=== PATIENT | male | born 1985 | race African-American/Black ===

== ENCOUNTER 2020-10-19 11:02 | Inpatient (IN) ==
[2020-10-19 11:56] LABS: Basophils # 0.1 K/mcL (0.0-0.2); Basophils % 0.4 %; Eosinophils # 0.2 K/mcL (0.0-0.6); Eosinophils % 1.8 %; Hematocrit 46.7 % (37.5-50.1); Immature Granulocytes % 0.3 % (0-4); Lymphocytes # 3.5 K/mcL (0.6-4.6); Lymphocytes % 27.7 %; Mean Corpuscular HGB Conc 34.3 g/dL (31.6-35.5); Mean Corpuscular Hemoglobin 31.3 pg (28.0-33.3); Mean Corpuscular Volume 91.4 fL (83.0-100.0); Mean Platelet Volume 10.9 fL (9.4-12.4); Monocytes % 8.1 %; Neutrophils # 7.7 K/mcL (1.6-8.9); Platelet Count 288 K/mcL (140-400); Red Blood Count 5.11 M/mcL (4.19-5.50); Red Cell Distribution Width 13.3 % (11.5-14.5); Segmented Neutrophils % 61.7 %; White Blood Count 12.5 K/mcL (4.3-11.1)
[2020-10-19 12:14] LABS: Acetaminophen < 10 mcg/mL (10-20); BUN/Creatinine Ratio 14 (6-26); Blood Urea Nitrogen 17 mg/dL (6-20); Calcium 10.2 mg/dL (8.6-10.3); Carbon Dioxide 27 mEq/L (23-29); Chloride 100 mEq/L (98-107); Chol/HDL Ratio 2.5 (0-4.9); Cholesterol 188 mg/dL (< 200); Ethanol < 10 mg/dL (Less than 10); Glucose 110 mg/dL (70-105); HDL Cholesterol 75 mg/dL (40-59); LDL Cholesterol,Calculated 103 mg/dL (< 100); Osmolality,Calculated 284 (280-300); Potassium 3.5 mEq/L (3.5-5.1); Salicylate < 2.5 mg/dL (15.0-30.0); Sodium 136 mEq/L (136-145); Triglycerides 49 mg/dL (< 150); eGFR For African Americans > 60 (> 60); eGFR For Non-African Americans > 60 (> 60)
[2020-10-19 12:29] LABS: Amorphous Sediment,Urine Few per hpf (None-Few); Bilirubin,Urine Negative (Negative); Blood,Urine Trace (Negative); Clarity,Urine Ex.Turbid (Clear); Color,Urine Yellow (Yellow); Glucose,Urine (UA) Normal (Normal); Ketones,Urine 10 mg/dL (Negative); Leukocyte Esterase,Urine Negative (Negative); Mucus,Urine Few per lpf (None-Few); Nitrite,Urine Negative (Negative); Protein,Urine 30 mg/dL (Neg-Trace); Specific Gravity,Urine 1.029 (1.010-1.025); Urobilinogen,Urine Normal (Normal)
[2020-10-19 12:44] LABS: Amphetamine Screen,Urine Positive ng/mL (Cutoff=1000); Barbiturate Screen,Urine Negative ng/mL (Cutoff=200); Benzodiazepines Screen,Urine Negative ng/mL (Cutoff=200); Cannabinoid Screen,Urine Negative ng/mL (Cutoff = 50); Cocaine Screen,Urine Negative ng/mL (Cutoff= 300); Opiate Screen,Urine Positive ng/mL (Cutoff=300); Phencyclidine Screen,Urine Negative ng/mL (Cutoff=25)
[2020-10-19 13:28] LABS: Estimated Average Glucose 117 mg/dl; Hemoglobin A1C 5.7 %
[2020-10-19] MEDS ORDERED: *HR* LORazepam 1 MG TABLET PO PRN (15:59)
[2020-10-19] MEDS ORDERED: *HR* LORazepam 2 MG/ML VIAL IM PRN (15:59)
[2020-10-19] MEDS ORDERED: Ibuprofen 400 MG TABLET PO PRN (15:59)
[2020-10-19] MEDS ORDERED: Mag Hydrox/Al Hydrox/Simeth 30 ML UDC PO PRN (15:59)
[2020-10-19] MEDS ORDERED: Nicotine 2 MG GUM BC PRN (17:12)
[2020-10-19] MEDS: QUEtiapine Fumarate 25 MG TABLET PO PRN (20:19)
[2020-10-19] MEDS: hydrOXYzine pamoate 25 MG CAPSULE PO PRN (20:19)
[2020-10-20] MEDS ORDERED: Nicotine 21 MG PATCH.TD24 TD SCH (09:00)
[2020-10-20] MEDS: ARIPiprazole 5 MG TABLET PO SCH (13:04)
[2020-10-20] MEDS: QUEtiapine Fumarate 25 MG TABLET PO PRN (20:25)
[2020-10-20] MEDS: hydrOXYzine pamoate 25 MG CAPSULE PO PRN (20:25)
[2020-10-21 09:02] VITALS: BP 125/83
[2020-10-21] MEDS: ARIPiprazole 5 MG TABLET PO SCH (09:03)
== END 2020-10-21 13:07 | disposition home or self-care (01) ==
LOC: EMEROOARM 11:02 → INTOOBSV 15:49 → 1ANU 15:49
PROVIDERS: ADMIT Psychiatry & Neurology Forensic Psychiatry; ATTEND Psychiatry & Neurology Forensic Psychiatry